=== PATIENT | female | born 1970 | race Caucasian/White ===

== ENCOUNTER 2020-07-04 20:01 | Emergency (ER) | payer OTHER | END 2020-07-05 00:28 | disposition home or self-care (01) | LOC: FER 20:01 | DX: M25.551 Pain in right hip (principal); I10 Essential (primary) hypertension; Z98.890 Other specified postprocedural states; Z88.1 Allergy status to other antibiotic agents; Z88.8 Allergy status to other drugs, medicaments and biological substances; Z91.040 Latex allergy status; Z79.899 Other long term (current) drug therapy | CPT/HCPCS: 73502; J1100 ==

== ENCOUNTER 2020-08-24 21:07 | Emergency (ER) | payer OTHER ==
[2020-08-24 21:46] LABS: BASOPHIL 0.6 % (0-2); EOSINOPHIL 1.8 % (0-5); HCT 38.5 % (37.0-47.0); HGB 12.8 g/dl (12.5-16.0); LYMPHOCYTE 14.7 % (15-48); MCH 29.3 pg (25.0-31.0); MCHC 33.2 g/dL (32.0-36.0); MCV 88.1 fL (78.0-100.0); MONOCYTE 6.9 % (0-12); MPV 11.5 fL (6.0-9.5); NEUTROPHIL 75.8 % (41-80); NRBC 0; PLT 209 K/uL (150-400); RBC 4.37 M/uL (4.20-5.40); RDW 13.2 % (11.5-14.0); WBC 9.8 K/uL (4.0-10.5)
[2020-08-24 21:49] LABS: INR 1.19 (0.9-1.2); PROTHROMBIN TIME 14.3 SECONDS (11.4-13.6)
[2020-08-24 22:21] LABS: ALBUMIN 3.6 g/dL (3.4-5.0); CREATININE 0.82 mg/dL (0.51-0.95); GLOBULIN (CALCULATION) 4.4 g/dL; POTASSIUM 3.8 mmol/L (3.5-5.1)
[2020-08-24 22:22] LABS: BILIRUBIN - TOTAL 0.3 mg/dL (0.2-1.0); PRO-BNP 206 pg/mL (<125)
== END 2020-08-25 01:35 | disposition home or self-care (01) ==
LOC: FER 21:07
PROVIDERS: Emergency Medicine
DX: R07.9 Chest pain, unspecified (principal); R51.9 Headache, unspecified; R00.2 Palpitations; R42 Dizziness and giddiness; Z85.3 Personal history of malignant neoplasm of breast; Z85.42 Personal history of malignant neoplasm of other parts of uterus; Z88.0 Allergy status to penicillin; Z88.2 Allergy status to sulfonamides; Z88.1 Allergy status to other antibiotic agents; Z88.8 Allergy status to other drugs, medicaments and biological substances; Z91.040 Latex allergy status
CPT/HCPCS: 36415; 70450; 71045; 80053; 83880; 84443; 84484; 85025; 85610; 93005; J1885; J2270

== ENCOUNTER 2021-10-18 23:23 | Emergency (ER) | payer OTHER | END 2021-10-19 04:30 | disposition home or self-care (01) | LOC: FER 23:23 | DX: M25.511 Pain in right shoulder (principal); Z88.0 Allergy status to penicillin; Z88.1 Allergy status to other antibiotic agents; Z88.8 Allergy status to other drugs, medicaments and biological substances; Z91.040 Latex allergy status; Z91.048 Other nonmedicinal substance allergy status; X50.1XXA Overexertion from prolonged static or awkward postures, initial encounter; Y92.009 Unspecified place in unspecified non-institutional (private) residence as the place of occurrence of the external cause | CPT/HCPCS: 73030 ==